=== PATIENT | male | born 1985 | race Two or more races ===

== ENCOUNTER 2016-10-21 17:37 | Emergency (ER) | payer OTHER ==
[~2016-10-21] VITALS: Ht 175.3 cm; Wt 86.3 kg
[2016-10-21 17:39] VITALS: BP 132/73
== END 2016-10-21 18:42 | disposition home or self-care (01) ==
LOC: ED 18:36
DX: S63.642A Sprain of metacarpophalangeal joint of left thumb, initial encounter (principal); X58.XXXA Exposure to other specified factors, initial encounter; Y93.89 Activity, other specified; Y92.89 Other specified places as the place of occurrence of the external cause; Y99.8 Other external cause status
CPT/HCPCS: 29125